=== PATIENT | female | born 1980 | race African-American/Black ===

== ENCOUNTER 2016-12-26 05:40 | Inpatient (IN) | payer OTHER ==
[~2016-12-26] VITALS: Ht 162.6 cm; Wt 109.3 kg
[2016-12-26 06:47] LABS: ABSOLUTE BASOPHIL COUNT 0 /CUMM (0.0-0.2); ABSOLUTE EOSINOPHIL COUNT 0 /CUMM (0.0-0.7)
[2016-12-26 06:50] LABS: ABSOLUTE LYMPH COUNT 1.7 /CUMM (1.2-3.4); ABSOLUTE MONOCYTE COUNT 0.7 /CUMM (0.10-0.60); BASOPHIL % 0.3 % (0.0-2.0); EOSINOPHIL % 0.3 % (0-5); GRANULOCYTE % 74.2 % (42.2-75.2); HEMATOCRIT 38.7 % (37-47); MEAN CORPUSCULAR HGB 26.8 PG (27.0-31.0); MEAN CORPUSCULAR HGB CONC 32.6 G/DL (33.0-37.0); MEAN CORPUSCULAR VOLUME 82.1 FL (81.0-99.0); MEAN PLATELET VOLUME 11.9 FL (7.4-10.4); PLATELET COUNT 63 /CUMM (130-400); RBC DISTRIBUTION WIDTH 14.4 % (11.5-14.5); RED BLOOD CELL CT 4.71 /CUMM (4.20-5.40); WHITE BLOOD CELL COUNT 9.5 /CUMM (4.8-10.8)
[2016-12-26 06:56] VITALS: BP 151/88
--- NOTE | 2016-12-26 07:08 | History & Physical ---
General Information and HPI MD Statement: I have seen and personally examined ROSEMARIE AGGARWAL and documented this H&P. The patient is a 36 year old female at [39] weeks and [6] days gestation who presented with a chief complaint of [SROM AND LABOR]. Source of Information: patient Exam Limitations: no limitations History of Present Illness: 36yo, , 39 6/7wks, c/o LOF since 4:20AM today, with ctxs. reportsGFM. care [id number], complicated by gestational thrombocytopenia, PLT [id number] on 11/10/2016. 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 : 6 Para: 5 Last Menstrual Period: 04/17/2016 Estimated Delivery Date: 12/27/2016 Past staff command and control officer History: non-contributory Past Pregnancies Past Pregnancies: Date of Delivery: 11/2012 Gestational Age: 40wks Weight: 7lbs Type of Delivery: vaginal Anesthesia: none Complications: none Medical History Blood Transfusion Hx: No Neurological: NONE EENT: NONE Cardiovascular: NONE Respiratory: NONE Gastrointestinal: NONE Hepatic: NONE Renal: NONE Musculoskeletal: NONE Psychiatric: NONE Endocrine: NONE Blood Disorders: NONE Cancer(s): NONE CASTING MOLDER/Reproductive: NONE Surgical History Pertinent Surgical History: non-contributory Past Family/Social History Psychosocial History Where do you live? Home Who Do You Live With? spouse, child Primary Language: Portuguese Smoking Status: Never Smoked ETOH Use: denies use Illicit Drug Use: denies illicit drug use Review of Systems Review of Systems Constitutional: Reports: no symptoms. EENTM: Reports: no symptoms. Cardiovascular: Reports: no symptoms. Respiratory: Reports: no symptoms. GI: Reports: no symptoms. Genitourinary: Reports: see HPI. Musculoskeletal: Reports: no symptoms. Skin: Reports: no symptoms. Neurological/Psychological: Reports: no symptoms. Hematologic/Endocrine: Reports: no symptoms, other (thrombocytopenia). Immunologic/Allergic: Reports: no symptoms. All Other Systems: Reviewed and Negative Date of LMP: 04/17/16 Post Menopausal: No Exam & Diagnostic Data Last 24 Hrs of Vital Signs/I&O Vital Signs Date Time Temp Pulse Resp B/P Pulse O2 O2 Flow FiO2 Ox Delivery Rate 12/26 0656 151/88 Intake & Output 12/26 0800 12/26 0000 12/25 1600 Intake Total Output Total Balance Patient 109.316 kg Weight Obstetric Exam Wgt Gained During : 20LBS Pelvimetry: adequate Dilation (cm): 5 Effacement (%): 80 Station: -2 Membranes: SROM Fluid: thick meconium Fundal Height (cm): 40 Multiple Gestation? No Contractions: q3-5min #1 - FHR Baseline: 150 Category: 1 Estimated Weight: 3500g Presentation: vertex Patient for Induction? No Physical Exam: General: NAD Abdomen: gravid, soft, nontender Labs Blood Type & Rh: A positive Antibody Screen: negative Hct/Hgb & Platelets #1: 13.2/39.8%, [id number] Hct/Hgb & Platelets #2: 12.7/39.6%,PLT [id number] Rubella: immune VDRL #1: negative VDRL #2: negative HbsAg: negative HIV #1: negative HIV #2 negative 1 Hr P Group B Strep: negative Initial Ultrasound: IUP at 25 wks 1 day Anatomy Ultrasound: normal Ultrasound for EFW: [id number] at 36 wks, 81% Genetic Testing: declined Last 24 Hrs of Labs/Keenan: Laboratory Tests 12/26/16 0620: CBC w Diff MAN DIFF ORDERED, RBC 4.71, MCV 82.1, MCH 26.8 L, RDW 14.4, MPV 11.9 H, Gran % 74.2, Lymphocytes % 17.9 L, Monocytes % 7.3, Eosinophils % 0.3, Basophils % 0.3, Absolute Granulocytes 7.0 H, Segmented Neutrophils Pending, Absolute Lymphocytes 1.7, Absolute Monocytes 0.7 H, Absolute Eosinophils 0, Absolute Basophils 0, PUBS MCHC 32.6 L, Urine Color Pending, Urine Clarity Pending, Urine pH Pending, Ur Specific [place] Pending, Urine Protein Pending, Urine Ketones Pending, Urine Nitrite Pending, Urine Bilirubin Pending, Urine Urobilinogen Pending, Ur Leukocyte Esterase Pending, Ur Microscopic Pending, Urine Hemoglobin Pending, Urine Glucose Pending Assessment/Plan Assessment/Plan: 36yo, , 39 6/7wks, SROm, labor. 1. admit pt, admission labs. 2. monitor closely 3. gestational thrombocytopemia, will monitor bleeidng , consider PLT transfusion. As Ranked By This Provider Problem List: 1. 2. SROM (spontaneous rupture of membranes) 3. Gestational thrombocytopenia Core Measures/Miscellaneous Venous Thromboembolism VTE Risk Factors: / VTE Contraindications: No Contraindications VTE Prophylaxis Ordered Inpt: Early Ambulation VTE Diagnosis: No Beta Yarely Is Beta Yarely a Home Med? No Antibiotics Is Patient on Antibiotics? No Attending MD Review Statement Attending Statement Attending MD Statement: examined this patient, discussed with family, discussed w/nursing
--- NOTE | 2016-12-26 09:13 | Labor & Delivery Summary ---
Delivery Summary Vaginal Delivery: Vaginal: spontaneous Episiotomy/Lacerations: Episiotomy/Lacerations: none Placenta: Placenta: spontanteous, normal, 3 vessel, body and leg cord Anesthesia: none Baby's Weight: 7# 4oz Apgars - 1 Min: 8 Apgars - 5 Min: 9 Additional Comments: thick meconium Jason in attendance
[2016-12-27 10:23] LABS: ABSOLUTE BASOPHIL COUNT 0 /CUMM (0.0-0.2); ABSOLUTE EOSINOPHIL COUNT 0 /CUMM (0.0-0.7); ABSOLUTE GRANULOCYTE CT 7.1 /CUMM (1.4-6.5); ABSOLUTE LYMPH COUNT 1.8 /CUMM (1.2-3.4); ABSOLUTE MONOCYTE COUNT 0.7 /CUMM (0.10-0.60); BASOPHIL % 0.4 % (0.0-2.0); EOSINOPHIL % 0.2 % (0-5); GRANULOCYTE % 73.5 % (42.2-75.2); MEAN CORPUSCULAR HGB 26.5 PG (27.0-31.0); MEAN CORPUSCULAR HGB CONC 32.6 G/DL (33.0-37.0); MEAN CORPUSCULAR VOLUME 81.4 FL (81.0-99.0); MEAN PLATELET VOLUME 13.4 FL (7.4-10.4); PLATELET COUNT 73 /CUMM (130-400); RBC DISTRIBUTION WIDTH 14.7 % (11.5-14.5); RED BLOOD CELL CT 4.02 /CUMM (4.20-5.40); WHITE BLOOD CELL COUNT 9.7 /CUMM (4.8-10.8)
[2016-12-27 10:27] LABS: HEMATOCRIT 32.7 % (37-47)
--- NOTE | 2016-12-27 13:32 | PN- Post Delivery/GYN ---
Subjective Subjective: Happy with her delivery- wants circ today for her son Review of Systems: Neg for Cardiac Pulmonary. GI complaints Objective Last 24 Hrs of Vital Signs/I&O Afebrile VSS Physical Exam General Appearance Alert, Oriented X3, Cooperative, No Acute Distress Skin No Significant Lesion Cardiovascular Regular Rate Lungs Normal Air Movement Abdomen Normal Bowel Sounds, Soft, No Tenderness, No Hepatospenomegaly, Fundus frm nontender - 3 fb below umbilicus Neurological Normal Gait, Normal Speech Extremities No Tenderness/Swelling Pelvic (FEMALE) Appearance Normal Current Medications: Current Medications Sig/Annita Start time Last Medication Dose Route Stop Time Status Admin Acetaminophen 650 MG Q4P PRN 12/26 0815 AC PO Al Hydroxide/Mg 30 ML .STK-MED ONE 12/26 1346 DC Hydroxide PO 12/26 1347 Al Hydroxide/Mg 30 ML Q4-6 PRN PRN 12/26 1315 AC Hydroxide PO Hydroxyzine HCl 50 MG AT BEDTIME NEED.. 12/26 0815 AC PO Ibuprofen 800 MG .STK-MED ONE 12/27 0435 DC PO 12/27 0436 Ibuprofen 800 MG Q6P PRN 12/26 0815 AC 12/27 PO 0440 Oxycodone/ 1 TAB Q3P PRN 12/26 0815 AC 12/26 Acetaminophen PO 1147 Oxytocin 20 UNITS ONCE ONE 12/26 1115 DC 12/26 Lactated Ringer's 1,000 ML IV 12/26 1914 0955 Last 24 Hrs of Labs/[place]: Laboratory Tests 12/27/16 0841: CBC w Diff MAN DIFF ORDERED, RBC 4.02 L, MCV 81.4, MCH 26.5 L, RDW 14.7 H, MPV 13.4 H, Gran % 73.5, Lymphocytes % 19.0 L, Monocytes % 6.9, Eosinophils % 0.2, Basophils % 0.4, Absolute Granulocytes 7.1 H, Absolute Lymphocytes 1.8, Absolute Monocytes 0.7 H, Absolute Eosinophils 0, Absolute Basophils 0, Platelet Estimate DECREASED, Anisocytosis 1+, PUBS MCHC 32.6 L Assessment/Plan Assessment/Plan stable PPD #1 Routine PP care Likely go home tomorrow Problem List: 1. SROM (spontaneous rupture of membranes) 2. Gestational thrombocytopenia 3. Term of male Attending MD Review Statement Attending Statement Attending MD Statement: examined this patient, discussed with family, discussed with nursing Attending Assessment/Plan: Soni Tee MD
[2016-12-28] MEDS ORDERED: PERCOCET 5-3251 EACH PO (07:41)
[2016-12-28] MEDS ORDERED: TYLENOL WITH C1 EACH PO (09:38)
--- NOTE | 2016-12-28 09:45 | PN- OBGYN ---
Surgical Brief Attending Note Brief Attending Note: no complaints. doing well. +ambulating, voiding, tolerating pain and po. + nursing. mod lochia. Has been taking motrin VSSAF FFAt U+2 ext: no calf tenderness trace b/l pedal edema Vital Signs Date Time Temp Pulse Resp B/P Pulse O2 O2 Flow FiO2 Ox Delivery Rate 12/26 0656 151/88 Orders Procedure Date/time Status Discharge Patient 12/28 UNK Active CBC WITHOUT DIFFERENTIAL 12/27 0600 Complete Regular Diet 12/26 L Active PATHOLOGY SPECIMEN 12/26 0824 Complete Pathway - chart 12/26 0817 Active Vital Signs 12/26 0817 Active Activity/Ambulation 12/26 0817 Active TRANSFER ORDERS 12/26 0814 Complete Pathway - chart 12/26 0610 Active Admit to inpatient 12/26 0610 Active Patient Data 12/26 0610 Active Vital Signs 12/26 0610 Complete OB: Monitoring 12/26 0610 Complete Activity/Ambulation 12/26 0610 Complete URINALYSIS 12/26 0610 Complete CBC WITHOUT DIFFERENTIAL 12/26 0610 Complete TYPE & SCREEN (NOT X-MATCH) 12/26 0610 Complete Childbirth Center Pt Data 12/26 UNK Active VTE Mechanical Prophylaxis 12/26 UNK Active a/p ppd2. doing well. Routine pp care. DISCHARGE TO HOME TODAY. REVIEWED PLT COUNT. RECC F/U WITH HEME 6 WEEKS PP FOR F/U CBC. ALTHOUGH HAS BEEN TAKING MOTRIN, RECC D/C DUE TO PLTS. TYLENOL ADVISED. WILL GIVE A T3 FOR SIGNIFICANT PAIN BUT ADVISED NOT TO EXCEED 3000MG ACETAMINOPHEN IN 24 HOURS. ROUTINE PP CARE ADVISED. F/U 2 AND 6 WEEKS PP IN OFFICE.
== END 2016-12-28 12:00 | DRG 775 ==
LOC: CBCO 05:40 → GNO 06:04
PROVIDERS: Obstetrics & Gynecology; ADMIT Obstetrics & Gynecology
PROC: 10E0XZZ Delivery of Products of Conception, External Approach (ICD-10-PCS; principal; 2016-12-26)
DX: O69.82X0 Labor and delivery complicated by other cord entanglement, without compression, not applicable or unspecified (principal); Z37.0 Single live birth; Z3A.39 39 weeks gestation of pregnancy
CPT/HCPCS: GNOS; 36415; 81001; 84112; 88307; J1885; J2405; J7120